=== PATIENT | female | born 2005 | race Hispanic/Latino ===

== ENCOUNTER 2023-01-08 23:09 | Emergency (ER) | payer BC ==
[~2023-01-08] VITALS: Ht 152.4 cm; Wt 66.2 kg
[2023-01-08 23:10] VITALS: BP 128/76; PULSE 94; RESP 16
[2023-01-08] MEDS ORDERED: LIDOCAINE HCL 1% 20 ML VIAL ONE (23:24)
== END 2023-01-08 23:54 | disposition home or self-care (01) ==
LOC: EDH 23:09
DX: S01.81XA Laceration without foreign body of other part of head, initial encounter (principal); Z88.6 Allergy status to analgesic agent; W50.0XXA Accidental hit or strike by another person, initial encounter; Y93.66 Activity, soccer; Y92.89 Other specified places as the place of occurrence of the external cause; Y99.8 Other external cause status
CPT/HCPCS: 12013; 99282